=== PATIENT | male | born 1945 | race Caucasian/White ===

== ENCOUNTER 2018-02-02 11:12 | Observation (INO) ==
--- NOTE | 2018-02-02 11:26 | Emergency Department Note ---
Disposition Clinical Impression: Chest pain, Shortness of breath Disposition: Admitted As Inpatient Condition: Fair General Adult HPI - General Chief complaint: ED Chest Pain Stated complaint: "think I am having heart attack" Time Seen by Provider: 02/02/18 11:21 Source: patient Limitations: no limitations - History of Present Illness Pain Scale: 8 - Related Data Home Medications Medication Instructions Recorded Confirmed Aspirin [Lo-Dose Aspirin EC] 81 mg PO DAILY 09/01/17 02/02/18 Atorvastatin [Lipitor] 40 mg PO HS 09/01/17 02/02/18 Clopidogrel [Plavix] 75 mg PO DAILY 09/01/17 02/02/18 Nitroglycerin [Nitrostat] 0.4 mg SL DAILY PRN 09/01/17 02/02/18 Lisinopril [Zestril] 10 mg PO BID 02/02/18 02/02/18 Previous Rx's Medication Instructions Recorded Ranolazine [Ranexa] 500 mg PO BID #60 tab.er.12h 02/03/18 amLODIPine [Norvasc] 5 mg PO DAILY #30 tablet 02/03/18 Allergies Allergy/AdvReac Type Severity Reaction Status Date / Time shellfish derived Allergy Swelling Verified 09/01/17 09:19 of Lip/Tongue/Throat Past Medical History - Past Medical History Medical history: Reports: coronary artery disease, hyperlipidemia, hypertension Surgical history: Reports: angioplasty/stent Psychiatric history: Reports: no psych history - Social History Smoking Status: Former smoker Smokeless Tobacco Status: No Alcohol use: Reports: none Drug use: Reports: none Physical Exam - General Limitations: no limitations General appearance: alert, in no apparent distress Course Vital Signs Temperature 98.1 F 02/02/18 11:14 Pulse Rate 60 02/02/18 11:14 Respiratory Rate 18 02/02/18 11:14 Blood Pressure 175/79 02/02/18 11:14 O2 Sat by Pulse Oximetry 100 02/02/18 11:14 Temperature 97.6 F 02/03/18 10:35 Pulse Rate 61 02/03/18 10:35 Respiratory Rate 17 02/03/18 10:35 Blood Pressure 164/87 02/03/18 10:35 O2 Sat by Pulse Oximetry 97 02/03/18 10:35 Oxygen Delivery Oxygen Delivery Room Air Medical Decision Making - Lab Data Result diagrams: 02/03/18 00:27 02/03/18 00:27 Lab Results 02/02/18 02/02/18 02/02/18 Range/Units 11:31 11:41 11:41 WBC 8.4 (4.3-11.1) K/mcL RBC 4.70 (4.19-5.50) M/mcL Hgb 13.8 (12.9-16.9) g/dL Hct 40.2 (37.5-50.1) % MCV 85.5 (83.0-100.0) fL MCH 29.4 (28.0-33.3) pg MCHC 34.3 (31.6-35.5) g/dL RDW 11.8 (11.5-14.5) % Plt Count 250 (140-400) K/mcL MPV 10.1 (9.4-12.4) fL Immature Gran % 0.4 (0-4) % Seg Neutrophils % 51.4 % Lymphocytes % 31.6 % Monocytes % 9.9 % Eosinophils % 5.4 % Basophils % 1.3 % Neutrophils # 4.3 (1.6-8.9) K/mcL Lymphocytes # 2.6 (0.6-4.6) K/mcL Monocytes # 0.8 (0.0-1.3) K/mcL Eosinophils # 0.5 (0.0-0.6) K/mcL Basophils # 0.1 (0.0-0.2) K/mcL PT 10.9 (9.4-12.1) Seconds INR 1.0 APTT 25.9 L (26.0-36.0) Seconds Sodium 139 (136-145) mEq/L Potassium 3.9 (3.5-5.1) mEq/L Chloride 108 H (98-107) mEq/L Carbon Dioxide 22 L (23-29) mEq/L BUN 16 (8-23) mg/dL Creatinine 0.93 (0.70-1.30) mg/dL Est GFR ( Amer) > 60 (> 60) Est GFR (Non-Af Amer) > 60 (> 60) BUN/Creatinine Ratio 17 (6-26) Glucose 86 (70-105) mg/dL Calculated Osmolality 288 (280-300) Calcium 10.1 (8.6-10.3) mg/dL Troponin I < 0.03 (< 0.04) ng/mL Attestation Statement - Attestation Attestation: I examined this patient and my medical decision-making was reviewed with the Resident Physician. I agree with the documented findings, disposition and treatment plan as described except to the extent set forth below. [id number] time provided Patient arrives with chest discomfort. Previous history of coronary artery disease with stent appointment. Appears mildly anxious on exam. EKG reviewed by me upon arrival
[2018-02-02] MEDS ORDERED: Nitroglycerin 0.4 MG TAB.SUBL SL ONE (11:31)
--- NOTE | 2018-02-02 11:38 | Emergency Department Note ---
Disposition Clinical Impression: Shortness of breath Chest pain Qualifiers: Chest pain type: unspecified Qualified Code(s): R07.9 - Chest pain, unspecified Disposition: Admitted As Inpatient Condition: Fair Forms: ED Satisfaction Letter Time of Disposition: 12:48 General Adult HPI - General Chief complaint: ED Chest Pain Stated complaint: "think I am having heart attack" Time Seen by Provider: 02/02/18 11:21 Source: patient Limitations: no limitations Nursing Notes Reviewed: Yes Vital Signs Reviewed: Yes - History of Present Illness HPI Narrative: Patient is a 72-year-old male that presented to the emergency department with chest pain. He describes as a pressure and that he cannot catch his breath. She states this been going on for the past 1-1/2 hours and has been constant. Patient denies any radiation of his pain or taking any nitroglycerin. However he does state that he took a couple additional baby aspirin. States that he feels like he cannot catch his breath. Patient states that he is had multiple stents placed as recently as October where he had 4 stents placed here at [place]. States that his reimbursement rep is Dr. Rodriguez. Patient denies any nausea or diaphoresis. Pain Scale: 8 - Related Data Home Medications Medication Instructions Recorded Confirmed Aspirin [Lo-Dose Aspirin EC] 81 mg PO DAILY 09/01/17 11/03/17 Atorvastatin [Lipitor] 40 mg PO HS 09/01/17 11/03/17 Clopidogrel [Plavix] 75 mg PO DAILY 09/01/17 11/03/17 Nitroglycerin [Nitrostat] 0.4 mg SL DAILY PRN 09/01/17 11/03/17 Previous Rx's Medication Instructions Recorded Lisinopril [Zestril] 10 mg PO DAILY #30 tablet 11/04/17 Allergies Allergy/AdvReac Type Severity Reaction Status Date / Time shellfish derived Allergy Swelling Verified 09/01/17 09:19 of Lip/Tongue/Throat All systems ED: reviewed and negative except as stated. Cardiovascular: Reports: chest pain Respiratory: Reports: dyspnea Past Medical History - Past Medical History Medical history: Reports: coronary artery disease, hyperlipidemia, hypertension Surgical history: Reports: angioplasty/stent Psychiatric history: Reports: no psych history - Social History Smoking Status: Former smoker Smokeless Tobacco Status: No Alcohol use: Reports: none Drug use: Reports: none Physical Exam - General Limitations: no limitations General appearance: alert, in no apparent distress - Head Head exam: atraumatic, normocephalic - Eye Eye exam: Present: normal appearance, EOMI - Neck Neck exam: Present: normal inspection, full ROM, trachea midline - Respiratory Respiratory exam: Present: normal lung sounds bilaterally. Absent: respiratory distress, wheezes - Cardiovascular Cardiovascular exam: Present: regular rate, normal rhythm, normal heart sounds, +S1, +S2 - Abdominal Exam Abdominal exam: Present: soft, Non-Tender, normal bowel sounds - Neurological Exam Neurological exam: Present: alert, oriented X3 - Psychiatric Psychiatric exam: Present: normal affect, normal mood - Skin Skin exam: Present: warm, dry, intact Course Vital Signs Temperature 98.1 F 02/02/18 11:14 Pulse Rate 60 02/02/18 11:14 Respiratory Rate 18 02/02/18 11:14 Blood Pressure 175/79 02/02/18 11:14 O2 Sat by Pulse Oximetry 100 02/02/18 11:14 Temperature 98.1 F 02/02/18 11:14 Pulse Rate 55 02/02/18 12:24 Respiratory Rate 16 02/02/18 12:24 Blood Pressure 122/69 02/02/18 12:24 O2 Sat by Pulse Oximetry 98 02/02/18 12:24 Oxygen Delivery Oxygen Delivery Room Air Medical Decision Making - [facility] Narrative Medical decision making narrative: Due the patient having chest pain and significant CAD history we will obtain a CBC, BMP, troponin, chest x-ray EKG as well as provided patient with nitroglycerin. No aspirin was given due to the patient taking aspirin prior to arrival. EKG showed a sinus rhythm with no STEMI noted on EKG. Troponin was negative. Chest x-ray showed renomegaly but no other acute cardio pulmonary process. Patient was given a dose of nitroglycerin and stated that that relieved his chest discomfort however did give him a mild headache and did not want any further nitroglycerin. Troponin was negative the remainder of his laboratory testing was unremarkable. Due to the patient's extensive cardiac history we will admit the patient for further evaluation and management and ACS rule out. I called and spoke with the hospitalist and they have accepted the patient to their service. The patient will be admitted to the hospital at this time. - Lab Data Lab results reviewed: Yes I reviewed the patient's lab results. Result diagrams: 02/02/18 11:41 02/02/18 11:41 Lab Results 02/02/18 02/02/18 02/02/18 Range/Units 11:31 11:41 11:41 WBC 8.4 (4.3-11.1) K/mcL RBC 4.70 (4.19-5.50) M/mcL Hgb 13.8 (12.9-16.9) g/dL Hct 40.2 (37.5-50.1) % MCV 85.5 (83.0-100.0) fL MCH 29.4 (28.0-33.3) pg MCHC 34.3 (31.6-35.5) g/dL RDW 11.8 (11.5-14.5) % Plt Count 250 (140-400) K/mcL MPV 10.1 (9.4-12.4) fL Immature Gran % 0.4 (0-4) % Seg Neutrophils % 51.4 % Lymphocytes % 31.6 % Monocytes % 9.9 % Eosinophils % 5.4 % Basophils % 1.3 % Neutrophils # 4.3 (1.6-8.9) K/mcL Lymphocytes # 2.6 (0.6-4.6) K/mcL Monocytes # 0.8 (0.0-1.3) K/mcL Eosinophils # 0.5 (0.0-0.6) K/mcL Basophils # 0.1 (0.0-0.2) K/mcL PT 10.9 (9.4-12.1) Seconds INR 1.0 APTT 25.9 L (26.0-36.0) Seconds Sodium 139 (136-145) mEq/L Potassium 3.9 (3.5-5.1) mEq/L Chloride 108 H (98-107) mEq/L Carbon Dioxide 22 L (23-29) mEq/L BUN 16 (8-23) mg/dL Creatinine 0.93 (0.70-1.30) mg/dL Est GFR ( Amer) > 60 (> 60) Est GFR (Non-Af Amer) > 60 (> 60) BUN/Creatinine Ratio 17 (6-26) Glucose 86 (70-105) mg/dL Calculated Osmolality 288 (280-300) Calcium 10.1 (8.6-10.3) mg/dL Troponin I < 0.03 (< 0.04) ng/mL - Radiology Data Radiology results reviewed: Yes I reviewed the patient's radiology results. Chest X-Ray 02/02/18 11:31 IMPRESSION: Cardiomegaly with no other acute cardiopulmonary findings. D/ / Sharmaine Donahue MD / Sharmaine Donahue MD Interpreting Provider: Sharmaine Donahue MD - EKG Data EKG #1 EKG attestation: Yes I reviewed and interpreted this EKG. EKG results narrative: EKG showed a sinus rhythm at a rate of 60 brace per minute, IA interval 173, QRS duration of 98, QTC of 352 with a normal axis. This was compared to previous EKG on 11/03/17 which showed a sinus rhythm at a rate of 68 bpm.
[2018-02-02 12:11] LABS: Basophils # 0.1 K/mcL (0.0-0.2); Basophils % 1.3 %; Eosinophils # 0.5 K/mcL (0.0-0.6); Eosinophils % 5.4 %; Hematocrit 40.2 % (37.5-50.1); Hemoglobin 13.8 g/dL (12.9-16.9); Immature Granulocytes % 0.4 % (0-4); Lymphocytes # 2.6 K/mcL (0.6-4.6); Lymphocytes % 31.6 %; Mean Corpuscular HGB Conc 34.3 g/dL (31.6-35.5); Mean Corpuscular Hemoglobin 29.4 pg (28.0-33.3); Mean Corpuscular Volume 85.5 fL (83.0-100.0); Mean Platelet Volume 10.1 fL (9.4-12.4); Monocytes # 0.8 K/mcL (0.0-1.3); Monocytes % 9.9 %; Neutrophils # 4.3 K/mcL (1.6-8.9); Platelet Count 250 K/mcL (140-400); Red Cell Distribution Width 11.8 % (11.5-14.5); Segmented Neutrophils % 51.4 %
[2018-02-02 12:15] LABS: BUN/Creatinine Ratio 17 (6-26); Blood Urea Nitrogen 16 mg/dL (8-23); Calcium 10.1 mg/dL (8.6-10.3); Carbon Dioxide 22 mEq/L (23-29); Chloride 108 mEq/L (98-107); Glucose 86 mg/dL (70-105); Osmolality,Calculated 288 (280-300); Potassium 3.9 mEq/L (3.5-5.1); Sodium 139 mEq/L (136-145); Troponin I < 0.03 ng/mL (< 0.04); eGFR For African Americans > 60 (> 60); eGFR For Non-African Americans > 60 (> 60)
[2018-02-02 12:24] LABS: Prothrombin Time 10.9 Seconds (9.4-12.1)
[2018-02-02 12:27] LABS: Activated Partial Thrombo Time 25.9 Seconds (26.0-36.0)
[2018-02-02] MEDS ORDERED: Acetaminophen 325 MG TABLET PO PRN (13:26)
[2018-02-02] MEDS ORDERED: *HR* HYDROcodone/Acet 5/325 mg TABLET PO PRN (13:26)
[2018-02-02] MEDS ORDERED: Naloxone 0.4 MG/ML INJ IVP PRN (13:26)
[2018-02-02] MEDS ORDERED: *HR* OxyCODONE Immed Rel 5 MG TABLET PO PRN (13:26)
[2018-02-02] MEDS ORDERED: Nitroglycerin 0.4 MG TAB.SUBL SL PRN (13:34)
--- NOTE | 2018-02-02 14:00 | Internal Med History&Physical ---
<Roman Fuentes - Last Filed: 02/02/18 14:30> Date of Encounter: 02/02/18 Time of Encounter: 13:00 Assessment and Plan (1) Chest pain Status: Acute Acute on chronic chest pain for the past 2-3 weeks that has intensified. Pt. reports chest pain w/wo exertion with SOB. Centralized intense pressure w/o radiation. Hx of 7 stents, 6 since August 2017. Hx of tortuous three-vessel disease. Initial troponin <0.03. Trend. Continuous cardiac telemetry. Echocardiogram. Lipitor 80 mg now and continue 40 mg daily. Aspirin. Nitro PRN. Cardiology consult ordered and discussed w/Dr. Gentile and I appreciate the consult and recommendations. Will let cardiology decide about possible stress test in a.m. Pt. discussed w/Dr. Cadena who agrees w/plan of care. Pt. is high risk for further morbidity d/t hx of CAD w/stent placements, previous tobacco abuse, current unresolved symptoms for 2-3 weeks, unstable angina, and risk factors. Observation. Qualifiers: Chest pain type: other chest pain Qualified Code(s): R07.89 - Other chest pain; R07.8 - Other chest pain (2) Unstable angina Status: Acute Pt. reports chest pain at rest that has worsened over the past 2-3 weeks. Hx of 7 stents, 6 since August. States aspirin and Nitro helped relieve pain. Lipitor 80 mg now. Aspirin. Nitro PRN. Initial troponin <0.03. Trend. Continuous cardiac telemetry. Cardiology consult ordered and discussed w/Dr. Gentile and I appreciate the consult. Urine tox screen ordered stat. (3) Shortness of breath Status: Acute Acute SOB accompanying chest pain. Pt. has prior hx of tobacco abuse and currently smokes marijuana. Supplemental O2 w/titration and SpO2 monitoring PRN. Falls/safety precautions. (4) Unsteadiness on feet Status: Acute Acute unsteadiness on feet. Pt. reports some dizziness on positional changes. Orthostatic BPs and VS. Bilateral carotid Doppler imaging. PT/OT consults ordered. Falls/safety precautions. (5) HLD (hyperlipidemia) Status: Chronic Hx of chronic HLD. Lipid panel in a.m. labs. Continue pts. Lipitor. Qualifiers: Hyperlipidemia type: pure hypercholesterolemia Qualified Code(s): E78.00 - Pure hypercholesterolemia, unspecified; E78.0 - Pure hypercholesterolemia (6) HTN (hypertension) Status: Chronic Hx of chronic HTN. Monitor pt. and VS. Continue pts. lisinopril. Qualifiers: Hypertension type: essential hypertension Qualified Code(s): I10 - Essential (primary) hypertension (7) CAD (coronary artery disease) Status: Chronic Hx of chronic CAD w/stent placement x7. Continuous cardiac telemetry. Continue pts. aspirin, Lipitor, lisinopril, and Plavix. Qualifiers: Coronary Disease-Associated Artery/Lesion type: [place] artery [place] vs. transplanted heart: [place] heart Associated angina: with unspecified angina Qualified Code(s): I25.119 - Atherosclerotic heart disease of [place] coronary artery with unspecified angina pectoris (8) DVT prophylaxis Status: Acute Heparin 5,000 units SQ Q8 for DVT prophylaxis. Monitor pt. for signs of bleeding. Internal Medicine - H&P: HPI Chief complaint: Chest pain Admitted From: Emergency Dept Plans for Post Hospital Care: Home History of present illness: Mr. Lai is a 72 year old male w/PMH of CAD, HLD, HTN, and history of tortuous three-vessel disease with stent placement 7 presents from the ED with chief complaint of chest pain the patient states began 2 weeks ago his chest tightness and has increased in intensity. Patient reports one week ago pain became worse with increasing shortness of breath and was nonexertional. Patient describes pain as intense pressure and centralized chest without radiation. No alleviating or aggravating factors. Patient reports having one stent placed several years ago and between August and October 2017 had 6 more placed. Reports dizziness and unsteadinees on feet but denies recent illness, palpitations, changes in vision, unusual bleeding, numbness, tingling, fever, chills, abdominal pain, pre-syncope, or syncope. Past Med Surg Social Fam HX - Past Medical History Source: patient, old records reviewed, obtained from family Medical history: coronary artery disease, hyperlipidemia, hypertension Psychiatric history: no psych history - Past Surgical History Surgical History: angioplasty/stent (x7) - Social History Smoking Status: Former smoker Packs per day: 1/2 PPD - Reports quitting 25 years ago Smokeless Tobacco Status: No Alcohol use: none Drug use: marijuana Occupational status: previously employed Current living situation: Home, With Family Activity Level: Independent ambulation Recent Out of Country Travel Within the Last 8 Weeks: No Exposure or Possible Exposure to Illness During Travel: No - Family History Mother Race: Family Member Ethnicity: Non- Living Status: Age at : 82 Cause of : Dementia Hx Family Cardiac Disorders: Yes (CAD) Father Race: Family Member Ethnicity: Non- Living Status: Age at : 60 Cause of : DVT Hx Family Cardiac Disorders: Yes (DVT) Hx Family Respiratory Disorders: Yes (Asthma) Hx Family Endocrine Disorder: Yes (DM) Brother Race: Family Member Ethnicity: Non- Living Status: Still Living Hx Family Cardiac Disorders: Yes (CAD, [place], HTN, HLD, Bypass) Internal Medicine - H&P: Meds Aspirin [Lo-Dose Aspirin EC] 81 mg PO DAILY 09/01/17 [History] Atorvastatin [Lipitor] 40 mg PO HS 09/01/17 [History] Clopidogrel [Plavix] 75 mg PO DAILY 09/01/17 [History] Nitroglycerin [Nitrostat] 0.4 mg SL DAILY PRN 09/01/17 [History] Lisinopril [Zestril] 10 mg PO BID 02/02/18 [History] Ranolazine [Ranexa] 500 mg PO BID #60 tab.er.12h 02/03/18 [Rx] amLODIPine [Norvasc] 5 mg PO DAILY #30 tablet 02/03/18 [Rx] 3 Allergy/AdvReac Type Severity Reaction Status Date / Time shellfish derived Allergy Swelling Verified 09/01/17 09:19 of Lip/Tongue/Throat All Systems PM: A 10-system review of systems was performed and is negative for pertinent findings except as documented above in the HPI. - Constitutional Constitutional: no chills, no fever(s), no night sweats - EENT Eyes: no change in vision, no discharge, no pain, no photophobia Ears: no ear discharge, no ear pain, no tinnitus Nose, mouth and throat: no dysphagia, no nasal discharge, no neck pain, no sore throat - Breasts Breasts: as per HPI - Cardiovascular Cardiovascular ROS IM: as per HPI, chest pain (Centralized chest pressure), dyspnea, dyspnea on exertion, lightheadedness, no diaphoresis, no palpitations, no syncope - Respiratory Respiratory: as per HPI, dyspnea, dyspnea on exertion, no cough, no wheezing, no excessive phlegm production - Gastrointestinal Gastrointestinal: no abdominal pain, no diarrhea, no hematemesis, no hematochezia, no melena, no nausea, no vomiting - Genitourinary Genitourinary ROS male: as per HPI - Musculoskeletal Musculoskeletal ROS IM: no numbness, no tingling - Integumentary Integumentary IM: no rash, no unusual bruising - Neurological Neurological ROS: as per HPI, dizziness, no confusion, no convulsions, no focal weakness, no numbness, no tingling, no tremor(s) - Psychiatric Psychiatric: as per HPI - Endocrine Endocrine IM: as per HPI - Hematologic/Lymphatic Hematologic/Lymphatic: no easy bruising - Allergic/Immunologic Allergic/Immunologic: as per HPI - Constitutional Vitals: Temp Pulse Resp BP Pulse Ox 98.1 F 52 16 146/79 97 02/02/18 11:14 02/02/18 13:23 02/02/18 13:23 02/02/18 13:23 02/02/18 13:23 General appearance: Present: cooperative, A&O X 3, pleasant, no acute distress, obese, answers questions appropriately - Head Head exam: Present: atraumatic, normocephalic - Eye Eye exam: Present: PERRL, conjuntiva pink, sclera anicteric Pupils: Present: PERRL - ENT ENT exam: Present: normal exam - Neck Neck exam general surgery: Present: normal inspection, supple, trachea midline. Absent: lymphadenopathy - Respiratory Respiratory exam: Present: CTAB. Absent: accessory muscle use, rales, rhonchi, wheezes - Cardiovascular Cardiovascular exam: Present: RRR, +S1, +S2. Absent: diastolic murmur, gallop, rubs, systolic murmur - GI/Abdominal GI/Abdominal exam: Present: normal bowel sounds, soft, no peritoneal signs. Absent: distended, tenderness - Rectal Rectal exam: Present: deferred - Additional comments: exam deferred. - Extremities Exam Extremities exam: Present: warm, radial pulses palpable and symmetrical. Absent : calf tenderness, cyanotic, pedal edema - Back Exam Back exam: Present: normal inspection - Neurological Exam Neurological exam: Present: CN II-XII intact, oriented X3, no focal deficits. Absent: pronater drift, facial droop, speech deficit - Psychiatric Psychiatric exam: Present: normal affect, normal mood - Skin Skin exam: Present: dry, intact Internal Med - H&P Results - Labs CBC & Chem 7: 02/02/18 11:41 02/02/18 11:41 Labs: Short CBC 02/02/18 Range/Units 11:41 WBC 8.4 (4.3-11.1) K/mcL Hgb 13.8 (12.9-16.9) g/dL Hct 40.2 (37.5-50.1) % Plt Count 250 (140-400) K/mcL Neutrophils # 4.3 (1.6-8.9) K/mcL BMP 02/02/18 11:41 Sodium 139 Potassium 3.9 Chloride 108 H Carbon Dioxide 22 L BUN 16 Creatinine 0.93 Glucose 86 Calcium 10.1 Cardiac Enzymes 02/02/18 Range/Units 11:41 Troponin I < 0.03 (< 0.04) ng/mL - EKG Data EKG shows normal: sinus rhythm - EKG Data Prior EKG available for review: yes EKG comments: 02/02/18 14:08 EKG dated 11/03/17 shows sinus rhythm with nonspecific T-wave abnormality. EKG dated 02/02/18 shows sinus rhythm with nonspecific T-wave abnormality. - Impressions ITS Impressions Chest X-Ray 02/02/18 11:31 IMPRESSION: Cardiomegaly with no other acute cardiopulmonary findings. D/ / Sharmaine Donahue MD / Sharmaine Donahue MD Interpreting Provider: Sharmaine Donahue MD - Diagnostic Studies Chest x-ray Additional comments: Impressions Chest X-Ray 02/02/18 11:31 IMPRESSION: Cardiomegaly with no other acute cardiopulmonary findings. D/ / Sharmaine Donahue MD / Sharmaine Donahue MD Interpreting Provider: Sharmaine Donahue MD <Humberto Tapia - Last Filed: 02/04/18 12:14> Date of Encounter: 02/04/18 Internal Medicine - H&P: HPI History of present illness: Mr. Lai is a 72 year old male All Systems PM: A 10-system review of systems was performed and is negative for pertinent findings except as documented above in the HPI. - Constitutional Vitals: Temp Pulse Resp BP Pulse Ox 97.6 F 61 17 164/87 97 02/03/18 10:35 02/03/18 10:35 02/03/18 10:35 02/03/18 10:35 02/03/18 10:35 Internal Med - H&P Results - Labs CBC & Chem 7: 02/03/18 00:27 02/03/18 00:27 Attestation: My signature below is to certify that this patient is under my care and that I, or nurse practitioner, or a physician's pharmacy sales assistant working with me, has a face-to -face encounter with this patient. 72 year old male with CAD presented for acute onset of pain. Symptoms present for several days lasting several minutes to hours. Physical exam was unremarkable, in no acute distress CVS RRR and lungs clear. Patient cardiac history makes high risk and so cardiology consulted and troponin cycled.
--- NOTE | 2018-02-02 14:59 | Cardiology Consult Note ---
Addendum entered and electronically signed by Khris Lea CNP 02/02/18 15:23 : No beta-nelda due to bradycardia-HR 50's. Original Note: Date of Encounter: 02/02/18 Time of Encounter: 14:55 Assessment and Plan (1) Chest pain Current Visit: Yes Status: Acute Chest pain r/o. Known CAD. S/p PCI to the RCA with staged PCI to the LAD. Diffuse disease noted in OM2, medical management recommended. Previously recommended to have staged PCI to the mLAD gap that only received PTCA and declined. LHC films will be reviewed by interventionalist. Trend troponin. Check TTE. Continue asa, plavix, statin, and bb. NTG PRN pain. Add imdur. NPO after midnight for possible LHC. Qualifiers: Chest pain type: other chest pain Qualified Code(s): R07.89 - Other chest pain; R07.8 - Other chest pain (2) CAD (coronary artery disease) Current Visit: Yes Status: Chronic Continue asa, plavix, statin, and bb. DAPT with asa and plavix uninterrupted for minimum of one year discussed. Denies missing medications. Qualifiers: Coronary Disease-Associated Artery/Lesion type: [place] artery [place] vs. transplanted heart: [place] heart Associated angina: with unspecified angina Qualified Code(s): I25.119 - Atherosclerotic heart disease of [place] coronary artery with unspecified angina pectoris (3) HTN (hypertension) Current Visit: Yes Status: Chronic Uncontrolled HTN. Re-start home meds and add imdur. Consider increasing lisinopril. Qualifiers: Hypertension type: essential hypertension Qualified Code(s): I10 - Essential (primary) hypertension Discussion w patient/family: The assessment and plan as outlined above was discussed with the patient and/or family members who expressed understanding and agreement. All questions were answered. Thank you for involving us in the care of your patient. Please call with any questions. History of Present Illness Consult date: 02/02/18 Requesting physician: Roman Fuentes Consult reason: Chest pain Chief complaint: Chest pain for 2 weeks History of present illness: Mr. Lai is a 72 year old male with past medical history of severe three vessel CAD s/p multiple PCI, HTN, HLD, and previous smoker who presented with c/ o increasing chest pain. Reports pain started three months ago after not sleeping well due to his dog. He took one NTG spray with relief of his pain. He experienced several more episodes over the past three weeks. Admits that pain increases with activity and his activity is limited due to chest pain. States that he was recommended to have another stent placed but he declined and was trying to treat with medication. Previous cardiac testing: [facility] 09/01/18: EF 60%. 85% stenosis in the mLAD, 70% stenosis in dLAD. 50% pLCX, 60% dLcx, 80% 2nd OM, 70% pRCA80% mRCA, 65% dRCA, 50% RPDA. S/p PTCA and FRANCOIS to the proximal and mid RCA. Staged PCI to the LAD was recommended. [facility] 11/03/17: PTCA and FRANCOIS to the mLAD x2 and pLAD x2. Recommended for staged PCI to the mLAD residual disease. TTE-08/29/17: LVEF 60-65%. Normal left ventricular size and systolic function. Normal diastolic function of the left ventricle. Normal right ventricular size and function. Mild mitral regurgitation. No pulmonary hypertension. Past Med Surg Social Fam HX - Past Medical History Medical history: coronary artery disease, hyperlipidemia, hypertension Psychiatric history: no psych history - Past Surgical History Surgical History: angioplasty/stent (x7) - Social History Smoking Status: Former smoker Packs per day: 1/2 PPD - Reports quitting 25 years ago Smokeless Tobacco Status: No Alcohol use: none Drug use: marijuana - Family History Mother Race: Family Member Ethnicity: Non- Living Status: Age at : 82 Cause of : Dementia Hx Family Cardiac Disorders: Yes (CAD) Father Race: Family Member Ethnicity: Non- Living Status: Age at : 60 Cause of : DVT Hx Family Cardiac Disorders: Yes (DVT) Hx Family Respiratory Disorders: Yes (Asthma) Hx Family Endocrine Disorder: Yes (DM) Brother Race: Family Member Ethnicity: Non- Living Status: Still Living Hx Family Cardiac Disorders: Yes (CAD, MD, HTN, HLD, Bypass) Medications and Allergies Aspirin [Lo-Dose Aspirin EC] 81 mg PO DAILY 09/01/17 [History] Atorvastatin [Lipitor] 40 mg PO HS 09/01/17 [History] Clopidogrel [Plavix] 75 mg PO DAILY 09/01/17 [History] Nitroglycerin [Nitrostat] 0.4 mg SL DAILY PRN 09/01/17 [History] Lisinopril [Zestril] 10 mg PO BID 02/02/18 [History] 3 Allergy/AdvReac Type Severity Reaction Status Date / Time shellfish derived Allergy Swelling Verified 09/01/17 09:19 of Lip/Tongue/Throat All Systems Review: The remainder of the systems were reviewed and are negative Physical Examination Vital Signs, Last 4 Hours Temp Pulse Pulse Pulse Pulse Resp BP 02/02/18 14:52 59 56 59 02/02/18 14:45 97.7 F 58 20 184/80 02/02/18 14:01 55 16 174/86 BP BP BP Pulse Ox 02/02/18 14:52 189/74 179/96 171/77 02/02/18 14:45 98 02/02/18 14:01 96 General: Conversant, No Apparent Distress HEENT: Atraumatic, Normocephaly, Mucus Membranes Moist Neck: No JVD, Normal carotid pulses Cardiac: Reg Rate and Rhythm, Normal S1 and S2, No Murmur, Other (diminished bases) Lungs: Normal Breath Sounds, No Wheeze, Rales, Rhonchi Neuro: Alert and responsive, No focal deficits noted Abdomen: Soft, Non-Tender Skin: No rashes noted on visualized skin Musculoskeletal: No Chest Wall Tenderness Extremities: No Clubbing, No Cyanosis, No Edema, Normal Pulses Results 02/02/18 11:41 02/02/18 11:41 - Imaging and Cardiology Echo: report reviewed Cardiac cath: report reviewed - EKG Interpretation EKG results cardiology: personally reviewed (Sr with no acute ST changes.) Consult Discharge Plan - Plan Referrals: Muriel Prado CNP [Primary Care Provider] - Roman Ahuja DO [Family Provider] -
[2018-02-02] MEDS: Ranolazine 500 MG TAB.ER.12H PO SCH (20:52)
[2018-02-02] MEDS: *HR* Heparin 5,000 UNIT/ML VIAL SQ SCH (20:52)
[2018-02-02 22:58] LABS: Amphetamine Screen,Urine Negative ng/mL (Cutoff=1000); Barbiturate Screen,Urine Negative ng/mL (Cutoff=200); Benzodiazepines Screen,Urine Negative ng/mL (Cutoff=200); Cannabinoid Screen,Urine Positive ng/mL (Cutoff = 50); Cocaine Screen,Urine Negative ng/mL (Cutoff= 300); Opiate Screen,Urine Negative ng/mL (Cutoff=300); Phencyclidine Screen,Urine Negative ng/mL (Cutoff=25)
[2018-02-03 01:02] LABS: Basophils # 0.1 K/mcL (0.0-0.2); Basophils % 1.2 %; Eosinophils # 0.7 K/mcL (0.0-0.6); Eosinophils % 7.4 %; Hematocrit 36.2 % (37.5-50.1); Hemoglobin 12.5 g/dL (12.9-16.9); Immature Granulocytes % 0.3 % (0-4); Lymphocytes # 2.6 K/mcL (0.6-4.6); Lymphocytes % 28.6 %; Mean Corpuscular HGB Conc 34.5 g/dL (31.6-35.5); Mean Corpuscular Hemoglobin 29.3 pg (28.0-33.3); Mean Platelet Volume 10.1 fL (9.4-12.4); Monocytes # 0.9 K/mcL (0.0-1.3); Monocytes % 9.4 %; Neutrophils # 4.8 K/mcL (1.6-8.9); Platelet Count 206 K/mcL (140-400); Red Blood Count 4.26 M/mcL (4.19-5.50); Red Cell Distribution Width 11.9 % (11.5-14.5); Segmented Neutrophils % 53.1 %
[2018-02-03 01:18] LABS: Alanine Aminotransferase 25 Units/L (7-52); Albumin 4.5 g/dL (3.5-5.7); Albumin/Globulin Ratio 2.3 (1.1-2.2); Alkaline Phosphatase 55 Units/L (34-104); Aspartate Amino Transferase 18 Units/L (13-39); BUN/Creatinine Ratio 20 (6-26); Bilirubin,Total 1.6 mg/dL (0.3-1.0); Blood Urea Nitrogen 19 mg/dL (8-23); Calcium 9.4 mg/dL (8.6-10.3); Carbon Dioxide 24 mEq/L (23-29); Chloride 108 mEq/L (98-107); Chol/HDL Ratio 3.2 (0-4.9); Cholesterol 97 mg/dL (< 200); Glucose 102 mg/dL (70-105); HDL Cholesterol 30 mg/dL (40-59); LDL Cholesterol,Calculated 40 mg/dL (0-99); Magnesium 2.2 mg/dL (1.6-2.6); Osmolality,Calculated 288 (280-300); Potassium 3.8 mEq/L (3.5-5.1); Sodium 138 mEq/L (136-145); Total Protein 6.5 g/dL (6.4-8.9); Triglycerides 134 mg/dL (< 150); eGFR For African Americans > 60 (> 60); eGFR For Non-African Americans > 60 (> 60)
[2018-02-03] MEDS: *HR* Heparin 5,000 UNIT/ML VIAL SQ SCH (06:24)
--- NOTE | 2018-02-03 08:09 | Electrocardiograph Report ---
[place] [id number] Test Date: 2018-02-02 Pat Name: Robert Lai Department: 104 Room: 3B16 Gender: M Counsel: Kody : 1945 Requested By: Tomas Prado Order Number: [id number] Reading MD: Angeline Fuentes Measurements Intervals [place] Rate: 60 P: 57 MO: 173 QRS: 48 QRSD: 98 T: 83 QT: 351 QTc: 352 Interpretive Statements SINUS RHYTHM NONSPECIFIC T-WAVE ABNORMALITY Electronically Signed On 02-03-2018 7:40:09 EDT by Angeline Fuentes
[2018-02-03] MEDS ORDERED: amLODIPine 5 MG TABLET PO SCH (09:00)
[2018-02-03] MEDS ORDERED: Aspirin Enteric Coated 81 MG Tablet PO SCH (09:00)
[2018-02-03 09:16] LABS: Estimated Average Glucose 117 mg/dl; Hemoglobin A1C 5.7 %
[2018-02-03] MEDS: Ranolazine 500 MG TAB.ER.12H PO SCH (10:21)
[2018-02-03 10:40] VITALS: BP 159/87
--- NOTE | 2018-02-03 11:30 | Cardiology Progress Note ---
Date of Encounter: 02/03/18 Time of Encounter: 11:26 Assessment and Plan (1) Chest pain Current Visit: Yes Status: Acute Chest pain r/o. Known CAD. S/p PCI to the RCA with staged PCI to the LAD. Diffuse disease noted in OM2, medical management recommended. Previously recommended to have staged PCI to the mLAD gap that only received PTCA and declined. Troponin negative x3. EKG with no acute changes. Now pain free after addition of anti-anginals. 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 TTE is pending. If no acute change no further testing will be recommended at this time. Continue ranexa and amlodipine. Continue asa, plavix, statin, and bb. Qualifiers: Chest pain type: other chest pain Qualified Code(s): R07.89 - Other chest pain; R07.8 - Other chest pain (2) CAD (coronary artery disease) Current Visit: Yes Status: Chronic Continue asa, plavix, statin, and bb. DAPT with asa and plavix uninterrupted for minimum of one year discussed. Denies missing medications. Qualifiers: Coronary Disease-Associated Artery/Lesion type: [place] artery [place] vs. transplanted heart: [place] heart Associated angina: with unspecified angina Qualified Code(s): I25.119 - Atherosclerotic heart disease of [place] coronary artery with unspecified angina pectoris (3) HTN (hypertension) Current Visit: Yes Status: Chronic Uncontrolled HTN. Re-start home meds and add imdur. Consider increasing lisinopril. Qualifiers: Hypertension type: essential hypertension Qualified Code(s): I10 - Essential (primary) hypertension Discussion w patient/family: The assessment and plan as outlined above was discussed with the patient and/or family members who expressed understanding and agreement. All questions were answered. Thank you for involving us in the care of your patient. Please call with any questions. Subjective Principal diagnosis: Chest pain Interval history: Mr. Lai reports he is ambulating in the hallway every half hour for 10 minutes. Denies recurrent chest pain after addition of ranexa and amlodipine. Objective Vital Signs, Last 4 Hours Temp Pulse Resp BP Pulse Ox 02/03/18 10:35 97.6 F 61 17 164/87 97 02/03/18 07:47 98.2 F 59 16 159/87 96 General: Conversant, No Apparent Distress HEENT: Atraumatic, Normocephaly, Mucus Membranes Moist Neck: No JVD, Normal carotid pulses Cardiac: Reg Rate and Rhythm, Normal S1 and S2, No Murmur Lungs: Normal Breath Sounds, No Wheeze, Rales, Rhonchi Neuro: Alert and responsive, No focal deficits noted Abdomen: Soft, Non-Tender Skin: No rashes noted on visualized skin Musculoskeletal: No Chest Wall Tenderness Extremities: No Clubbing, No Cyanosis, No Edema, Normal Pulses Results 02/03/18 00:27 02/03/18 00:27 Lab Results 02/02/18 02/03/18 02/03/18 17:54 00:27 00:27 WBC 9.1 Hgb 12.5 L Hct 36.2 L Plt Count 206 Sodium Potassium Chloride Carbon Dioxide BUN Creatinine Glucose Calcium Magnesium Total Bilirubin AST ALT Alkaline Phosphatase Troponin I < 0.03 < 0.03 02/03/18 00:27 WBC Hgb Hct Plt Count Sodium 138 Potassium 3.8 Chloride 108 H Carbon Dioxide 24 BUN 19 Creatinine 0.93 Glucose 102 Calcium 9.4 Magnesium 2.2 Total Bilirubin 1.6 H AST 18 ALT 25 Alkaline Phosphatase 55 Troponin I - Imaging and Cardiology Echo: pending - EKG Interpretation EKG results cardiology: personally reviewed (EKG shows SR with no acute changes) Consult Discharge Plan - Plan Referrals: Muriel Prado CNP [Primary Care Provider] - Roman Ahuja DO [Family Provider] -
--- NOTE | 2018-02-03 13:12 | Discharge Summary ---
- NOTES TO OUTPATIENT PROVIDER Notes to Outpatient Provider: f/u next week with cardiology as scheduled and with PCP in one week Date of Encounter: 02/03/18 Time of Encounter: 13:09 - Discharge Diagnosis (1) Chest pain Priority: Primary Status: Acute Comments: Chest pain rule out. Patient with known CAD status post PCI to the RCA with staged PCI to the LAD. Diffuse disease noted in the OM 2. Medical management was recommended. Troponin negative 3 EKG with no acute changes Pain-free after addition of anti-anginal's Patient prefers to continue with medical management and will follow up with his rn l and d next week as previously scheduled. TTE shows preserved EF and no wall motion abnormality. Cardiology felt that he could be discharged. The patient was in agreement He was provided with a prescription for Ranexa and amlodipine. He will continue previously ordered aspirin, Plavix, statin and beta nelda. Qualifiers: Chest pain type: other chest pain Qualified Code(s): R07.89 - Other chest pain; R07.8 - Other chest pain (2) Unstable angina Priority: Primary Status: Acute Comments: See above plan (3) Unsteadiness on feet Priority: Primary Status: Resolved (4) CAD (coronary artery disease) Priority: Primary Status: Chronic Comments: See above plan will follow-up with cardiology as directed Qualifiers: Coronary Disease-Associated Artery/Lesion type: [place] artery [place] vs. transplanted heart: [place] heart Associated angina: with unspecified angina Qualified Code(s): I25.119 - Atherosclerotic heart disease of [place] coronary artery with unspecified angina pectoris (5) HLD (hyperlipidemia) Priority: Primary Status: Chronic Comments: Continue statin Glycerides 134, cholesterol 97, LDL 40, HDL 30 Qualifiers: Hyperlipidemia type: pure hypercholesterolemia Qualified Code(s): E78.00 - Pure hypercholesterolemia, unspecified; E78.0 - Pure hypercholesterolemia (6) HTN (hypertension) Priority: Primary Status: Chronic Comments: Blood pressure with good control Qualifiers: Hypertension type: essential hypertension Qualified Code(s): I10 - Essential (primary) hypertension Hospital course: Mr. Lai is a 72 year old male Discharge discussed with: patient, family, nurse - Time Spent with Patient Total time spent providing and/or coordinating discharge services: Less than 30 minutes - Discharge Medications Prescriptions: amLODIPine [Norvasc] 5 mg PO DAILY #30 tablet Ranolazine [Ranexa] 500 mg PO BID #60 tab.er.12h Home Medications: Aspirin [Lo-Dose Aspirin EC] 81 mg PO DAILY 09/01/17 [History] Atorvastatin [Lipitor] 40 mg PO HS 09/01/17 [History] Clopidogrel [Plavix] 75 mg PO DAILY 09/01/17 [History] Nitroglycerin [Nitrostat] 0.4 mg SL DAILY PRN 09/01/17 [History] Lisinopril [Zestril] 10 mg PO BID 02/02/18 [History] Ranolazine [Ranexa] 500 mg PO BID #60 tab.er.12h 02/03/18 [Rx] amLODIPine [Norvasc] 5 mg PO DAILY #30 tablet 02/03/18 [Rx] Allergies/Adverse Reactions: 3 Allergy/AdvReac Type Severity Reaction Status Date / Time shellfish derived Allergy Swelling Verified 09/01/17 09:19 of Lip/Tongue/Throat Date of admission: 02/02/18 13:56 Primary care physician: Muriel Prado CNP Discharging clinician: Staci Thomas Anticipated date of discharge: 02/03/18 - Constitutional Vitals: Temp Pulse Resp BP Pulse Ox 97.6 F 61 17 164/87 97 02/03/18 10:35 02/03/18 10:35 02/03/18 10:35 02/03/18 10:35 02/03/18 10:35 General appearance: Present: cooperative, A&O X 3, pleasant, no acute distress, answers questions appropriately - Head Head exam: Present: atraumatic, normocephalic - Eye Eye exam: Present: PERRL, conjuntiva pink, sclera anicteric Pupils: Present: PERRL - Neck Neck exam general surgery: Present: supple, trachea midline. Absent: lymphadenopathy - Respiratory Respiratory exam: Present: CTAB. Absent: accessory muscle use, rales, rhonchi, wheezes - Cardiovascular Cardiovascular exam: Present: RRR, +S1, +S2. Absent: diastolic murmur, gallop, rubs, systolic murmur - GI/Abdominal GI/Abdominal exam: Present: normal bowel sounds, soft, no peritoneal signs. Absent: distended, tenderness - Extremities Exam Extremities exam: Present: warm, radial pulses palpable and symmetrical. Absent : calf tenderness, cyanotic, pedal edema - Neurological Exam Neurological exam: Present: CN II-XII intact, oriented X3, no focal deficits. Absent: pronater drift, facial droop, speech deficit - Skin Skin exam: Present: dry, intact, normal color, warm - Patient Status Disposition: Home, Self-Care Condition: Fair Functional capacity at discharge: independent ambulation Overall status at discharge: patient is back to baseline - Discharge Instructions Follow Up With: Muriel Prado CNP [Primary Care Provider] - Roman Ahuja DO [Family Provider] - - Diet and Activity Activity: resume usual activities as tolerated Diet: advance to your usual diet, low fat, low cholesterol
== END 2018-02-03 14:15 | disposition home or self-care (01) ==
LOC: EMEROO 11:12 → 3BNU 11:12
PROVIDERS: ADMIT Student in an Organized Health Care Education/Training Program; ATTEND Registered Nurse